=== PATIENT | male | born 1965 | race Caucasian/White ===

== ENCOUNTER 2018-05-29 21:30 | Inpatient (IN) | payer OTHER ==
[2018-05-29 22:07] LABS: ADD MAN DIFF? NO
[2018-05-29 22:10] LABS: WHITE BLOOD COUNT 22.2 10^3/ul (4.8-10.8)
[2018-05-29 22:10] LABS: BASOPHIL # 0.1 10^3/ul (0.0-0.1); BASOPHILS % 0.4 % (0.0-2.0); EOSINOPHILS # 0.1 10^3/ul (0.0-0.5); EOSINOPHILS % 0.4 % (0.0-7.0); HEMATOCRIT 43.4 % (42.0-52.0); HEMOGLOBIN 14.1 g/dl (14.0-18.0); LYMPHOCYTES # 1.2 10^3/ul (0.8-2.9); LYMPHOCYTES % 5.6 % (15.0-51.0); MEAN CORPUSCULAR HEMOGLOBIN 27.1 pg (29.0-33.0); MEAN CORPUSCULAR HGB CONC 32.5 g/dl (32.0-37.0); MEAN CORPUSCULAR VOLUME 83.5 fl (82.0-101.0); MEAN PLATELET VOLUME 10.3 fl (7.4-10.4); MONOCYTE # 1.4 10^3/ul (0.3-0.9); MONOCYTES % 6.1 % (0.0-11.0); NEUTROPHIL # 19.1 10^3/ul (1.6-7.5); NEUTROPHILS % 86.1 % (39.0-77.0); PLATELET COUNT 224 10^3/UL (140-415); POSITIVE DIFF @See below; RED CELL DISTRIBUTION WIDTH 13.9 % (11.5-14.5)
[2018-05-29] MEDS: IBUPROFEN 600 MG TAB PO (22:23)
[2018-05-29 22:28] LABS: ALANINE AMINOTRANSFERASE 16 IU/L (13-69); ALBUMIN 3.7 g/dl (3.3-4.9); ALKALINE PHOSPHATASE 74 IU/L (42-121); ANION GAP 12 (5-13); ASPARTATE AMINO TRANSFERASE 25 IU/L (15-46); BILIRUBIN,INDIRECT 0.8 mg/dl (0-1.1); BILIRUBIN,TOTAL 0.8 mg/dl (0.2-1.3); BLOOD UREA NITROGEN 21 mg/dl (7-20); CALCIUM 9.1 mg/dl (8.4-10.2); CARBON DIOXIDE 24 mmol/L (21-31); CHLORIDE 94 mmol/L (97-110); CREATININE 1.33 mg/dl (0.61-1.24); Estimated GFR 56 mL/min (>60); GLUCOSE 298 mg/dl (70-220); LIPASE 96 U/L (23-300); POTASSIUM 4.5 mmol/L (3.5-5.1); SODIUM 130 mmol/L (135-144); TOTAL PROTEIN 7.4 g/dl (6.1-8.1)
[2018-05-29 22:28] LABS: LACTIC ACID 1.6 mmol/L (0.5-2.0)
[2018-05-29 22:31] LABS: PARTIAL THROMBOPLASTIN TIME 21.8 Sec (23.0-35.0); PROTIME 14.3 Sec (11.9-14.9); PT RATIO 1.1
[2018-05-29 22:38] LABS: TROPONIN-I < 0.012 ng/ml (0.000-0.120)
[2018-05-29] MEDS: SODIUM CHLORIDE 0.9% 1L BAG IV* (23:04)
[2018-05-29] MEDS: PIPER-TAZO 3.375 GM IV (PMX) 100 ML IVPB (23:04)
[2018-05-30 00:48] LABS: ADD UMIC YES; UR ASCORBIC ACID NEGATIVE (NEGATIVE); UR BILIRUBIN (Dip) NEGATIVE (NEGATIVE); UR BLOOD (Dip) 1+ mg/dL (NEGATIVE); UR CLARITY SLIGHTLY CLOUDY (CLEAR); UR COLOR YELLOW (YELLOW); UR GLUCOSE (Dip) 3+ mg/dL (NEGATIVE); UR KETONES (Dip) TRACE mg/dL (NEGATIVE); UR LEUKOCYTE ESTERASE (Dip) NEGATIVE Leu/ul (NEGATIVE); UR MUCUS FEW /HPF (NONE SEEN); UR NITRITE (Dip) NEGATIVE (NEGATIVE); UR RBC 0 /HPF (0-5); UR SPECIFIC GRAVITY (Dip) 1.017 (1.003-1.030); UR TOTAL PROTEIN (Dip) 3+ mg/dl (NEGATIVE); UR UROBILINOGEN (Dip) NEGATIVE (NEGATIVE); UR WBC 1 /HPF (0-5)
[2018-05-30] MEDS: SOD CHLORIDE 0.9% 100 ML (00:52)
[2018-05-30] MEDS: IOHEXOL 300MG/ML 150 ML BTL (00:52)
[2018-05-30] MEDS ORDERED: ACETAMINOPHEN 325 MG TAB PO (02:30)
[2018-05-30] MEDS ORDERED: NACL 0.9% 3 ML SYG IV (02:30)
[2018-05-30] MEDS ORDERED: DOCUSATE SODIUM 100 MG CAP PO (02:30)
[2018-05-30] MEDS ORDERED: BISACODYL (EC) 5 MG TAB PO (02:30)
[2018-05-30] MEDS ORDERED: ONDANSETRON 4 MG INJ IV ×2 (02:30→04:30)
[2018-05-30 02:31] LABS: LACTIC ACID 1.2 mmol/L (0.5-2.0)
[2018-05-30] MEDS: SOD CHLORIDE 0.9% 1,000 ML IV (02:57)
[2018-05-30] MEDS ORDERED: VANCOMYCIN IV PER PHARMACY XX ×2 (03:30→04:00)
[2018-05-30] MEDS: CLINDAMYCIN 900 MG/D5W (PMX) 50 ML IVPB ×2 (03:44→18:21)
[2018-05-30] MEDS ORDERED: POLYMYXIN B 500000 UNIT INJ (03:54)
[2018-05-30] MEDS ORDERED: CLINDAMYCIN 900 MG/D5W (PMX) 50 ML IVPB (04:00)
[2018-05-30] MEDS: INSULIN ASPART [NOVOLOG] 3 ML PEN SC ×7 (04:04→20:38)
[2018-05-30] MEDS ORDERED: PROPOFOL 20 ML (04:14)
[2018-05-30] MEDS ORDERED: FENTAnyl 50 MCG/ML VIAL (04:14)
[2018-05-30] MEDS ORDERED: SUCCINYLCHOLINE CHLORIDE 100 MG/5 ML SYG IV (04:14)
[2018-05-30] MEDS ORDERED: METOCLOPRAMIDE 10 MG INJ (04:30)
[2018-05-30] MEDS ORDERED: HYDROmorphONE 1 MG/5 ML IV SYRINGE IV ×3 (04:30)
[2018-05-30] MEDS ORDERED: hydrALAzine 20 MG INJ IV (04:30)
[2018-05-30] MEDS ORDERED: DIPHENHYDRAMINE 50 MG INJ IV (04:30)
[2018-05-30] MEDS ORDERED: LABETALOL HCL 20MG INJ IV (04:30)
[2018-05-30] MEDS ORDERED: MEPERIDINE 25 MG INJ IV (04:30)
[2018-05-30] MEDS ORDERED: ONDANSETRON 4 MG INJ (04:30)
[2018-05-30] MEDS ORDERED: FENTAnyl 50 MCG/ML VIAL IV ×2 (04:30)
[2018-05-30] MEDS ORDERED: ROCURONIUM 50 MG INJ (04:31)
[2018-05-30] MEDS ORDERED: PHENYLephrine 10 MG INJ (04:36)
[2018-05-30] MEDS ORDERED: ALBUTEROL 0.083% (NEB) 2.5 MG/3 ML AMP (05:17)
[2018-05-30] MEDS: FENTAnyl 50 MCG/ML VIAL IV (06:01)
[2018-05-30] MEDS: PIPER-TAZO 3.375 GM IV (PMX) 100 ML IVPB ×3 (06:06→20:35)
[2018-05-30] MEDS: ALBUTEROL 0.083% (NEB) 2.5 MG/3 ML AMP HHN (06:30)
[2018-05-30] MEDS: IPRATROPIUM (NEB) 0.5 MG/2.5 ML AMP HHN (06:30)
[2018-05-30] MEDS ORDERED: CLINDAMYCIN 900 MG/50 ML D5W IVPB IVPB (07:00)
[2018-05-30] MEDS ORDERED: GLUCAGON 1 MG INJ IM (07:30)
[2018-05-30] MEDS ORDERED: DEXTROSE 50% 50 ML SYRINGE IV ×2 (07:30)
[2018-05-30] MEDS ORDERED: GLUCOSE GEL 15 GRAM TUBE PO ×2 (07:30)
[2018-05-30] MEDS ORDERED: GLUCOSE GEL 15 GRAM TUBE BUCCAL (07:30)
[2018-05-30 10:49] LABS: ABNORMAL IP MESSAGE 1; HEMATOCRIT 38.8 % (42.0-52.0); HEMOGLOBIN 12.4 g/dl (14.0-18.0); MEAN CORPUSCULAR HEMOGLOBIN 27.2 pg (29.0-33.0); MEAN CORPUSCULAR VOLUME 85.1 fl (82.0-101.0); MEAN PLATELET VOLUME 9.7 fl (7.4-10.4); PLATELET COUNT 253 10^3/UL (140-415); POSITIVE DIFF @See below; RED BLOOD COUNT 4.56 10^6/ul (4.70-6.10); RED CELL DISTRIBUTION WIDTH 14.4 % (11.5-14.5)
[2018-05-30 10:49] LABS: WHITE BLOOD COUNT 27.3 10^3/ul (4.8-10.8)
[2018-05-30 10:51] LABS: ADD MAN DIFF? YES
[2018-05-30] MEDS: ENOXAPARIN 40 MG/0.4 ML SYG SC (10:56)
[2018-05-30 10:59] LABS: HEMOGLOBIN A1C 11.3 % (0-5.9)
[2018-05-30 11:07] LABS: ALANINE AMINOTRANSFERASE 16 IU/L (13-69); ALBUMIN 3.2 g/dl (3.3-4.9); ALBUMIN/GLOBULIN RATIO 1.03; ALKALINE PHOSPHATASE 78 IU/L (42-121); ANION GAP 7 (5-13); ASPARTATE AMINO TRANSFERASE 25 IU/L (15-46); BILIRUBIN,INDIRECT 0.7 mg/dl (0-1.1); BILIRUBIN,TOTAL 0.7 mg/dl (0.2-1.3); BLOOD UREA NITROGEN 24 mg/dl (7-20); CALCIUM 8.2 mg/dl (8.4-10.2); CARBON DIOXIDE 26 mmol/L (21-31); CHLORIDE 99 mmol/L (97-110); CHOL/HDL RATIO 6.6 RATIO; CHOLESTEROL 139 mg/dl (100-200); CREATININE 1.58 mg/dl (0.61-1.24); Estimated GFR 46 mL/min (>60); GLUCOSE 334 mg/dl (70-220); HDL CHOLESTEROL 21 mg/dl (28-71); LDL CHOLESTEROL,CALCULATED 63 mg/dl; MAGNESIUM 1.7 mg/dl (1.7-2.5); POTASSIUM 4.8 mmol/L (3.5-5.1); SODIUM 132 mmol/L (135-144); TOTAL PROTEIN 6.3 g/dl (6.1-8.1); TRIGLYCERIDES 273 mg/dl (0-149)
[2018-05-30 11:43] LABS: ANISOCYTOSIS 2+ (0-0); BAND NEUTROPHILS #M 2.4 10^3/ul (0.0-0.6); BAND NEUTROPHILS % (M) 9 % (0-4); LYMPHOCYTES % (M) 4 % (15-51); MICROCYTOSIS 1+ (0-0); MONOCYTE #M 1.6 10^3/ul (0.3-0.9); MONOCYTES % (M) 6 % (0-11); PLATELET ESTIMATE NORMAL; POLYCHROMASIA 1+ (0-0); SEG NEUT #M 22.8 10^3/ul (1.6-7.5); SEGMENTED NEUTROPHILS (M) % 81 % (39-77); SMUDGE%M 1 % (0-0)
[2018-05-30] MEDS: INSULIN GLARGINE [LANTus] (100 UNITS/ML) SYG SC (12:47)
[2018-05-30] MEDS: VANCOMYCIN HCL 2 GM in SOD CHLORIDE 0.9% 500 ML IVPB (14:05)
[2018-05-30] MEDS: DAKINS 0.0125%(1/40) 473 ML SOLUTION TP (15:41)
[2018-05-30] MEDS: morphine 2 MG INJ IV (15:41)
[2018-05-30] MEDS: CEPASTAT LOZENGE MT (20:44)
[2018-05-31] MEDS: ACCU-CHEK XX (02:00)
[2018-05-31] MEDS: PIPER-TAZO 3.375 GM IV (PMX) 100 ML IVPB ×4 (02:36→22:32)
[2018-05-31] MEDS: VANCOMYCIN 1 GM 250 ML IVPB ×2 (02:54→14:14)
[2018-05-31] MEDS: morphine 2 MG INJ IV ×2 (04:37→12:05)
[2018-05-31] MEDS: CLINDAMYCIN 900 MG/D5W (PMX) 50 ML IVPB ×3 (05:18→21:25)
[2018-05-31] MEDS: ENOXAPARIN 40 MG/0.4 ML SYG SC (06:14)
[2018-05-31] MEDS: SOD CHLORIDE 0.9% 500 ML IV (06:15)
[2018-05-31] MEDS: INSULIN ASPART [NOVOLOG] 3 ML PEN SC ×7 (08:52→21:24)
[2018-05-31] MEDS: INSULIN GLARGINE [LANTus] (100 UNITS/ML) SYG SC (08:53)
[2018-05-31 11:47] LABS: ADD MAN DIFF? NO
[2018-05-31 11:54] LABS: BASOPHIL # 0.1 10^3/ul (0.0-0.1); BASOPHILS % 0.6 % (0.0-2.0); EOSINOPHILS # 0.5 10^3/ul (0.0-0.5); EOSINOPHILS % 3.7 % (0.0-7.0); HEMATOCRIT 38.5 % (42.0-52.0); LYMPHOCYTES # 1.6 10^3/ul (0.8-2.9); LYMPHOCYTES % 11.1 % (15.0-51.0); MEAN CORPUSCULAR HEMOGLOBIN 27.1 pg (29.0-33.0); MEAN CORPUSCULAR HGB CONC 31.2 g/dl (32.0-37.0); MEAN CORPUSCULAR VOLUME 87.1 fl (82.0-101.0); MEAN PLATELET VOLUME 9.2 fl (7.4-10.4); MONOCYTE # 0.9 10^3/ul (0.3-0.9); MONOCYTES % 6.3 % (0.0-11.0); NEUTROPHILS % 75.8 % (39.0-77.0); PLATELET COUNT 265 10^3/UL (140-415); RED BLOOD COUNT 4.42 10^6/ul (4.70-6.10); RED CELL DISTRIBUTION WIDTH 14.5 % (11.5-14.5)
[2018-05-31 11:54] LABS: WHITE BLOOD COUNT 14.5 10^3/ul (4.8-10.8)
[2018-05-31 12:33] LABS: ALANINE AMINOTRANSFERASE 28 IU/L (13-69); ALBUMIN 2.7 g/dl (3.3-4.9); ALBUMIN/GLOBULIN RATIO 0.96; ALKALINE PHOSPHATASE 58 IU/L (42-121); ANION GAP 9 (5-13); ASPARTATE AMINO TRANSFERASE 25 IU/L (15-46); BILIRUBIN,INDIRECT 0.4 mg/dl (0-1.1); BILIRUBIN,TOTAL 0.4 mg/dl (0.2-1.3); BLOOD UREA NITROGEN 19 mg/dl (7-20); CALCIUM 7.4 mg/dl (8.4-10.2); CARBON DIOXIDE 24 mmol/L (21-31); CHLORIDE 103 mmol/L (97-110); CREATININE 1.28 mg/dl (0.61-1.24); Estimated GFR 59 mL/min (>60); GLUCOSE 216 mg/dl (70-220); POTASSIUM 4.1 mmol/L (3.5-5.1); SODIUM 136 mmol/L (135-144); TOTAL PROTEIN 5.5 g/dl (6.1-8.1)
[2018-06-01] MEDS: morphine 2 MG INJ IV ×4 (00:47→21:53)
[2018-06-01] MEDS: ACCU-CHEK XX ×3 (02:00)
[2018-06-01 02:08] LABS: VANCOMYCIN,TROUGH 9.8 ug/ml (10.0-20.0)
[2018-06-01] MEDS: VANCOMYCIN 1 GM 250 ML IVPB (02:45)
[2018-06-01] MEDS: CLINDAMYCIN 900 MG/D5W (PMX) 50 ML IVPB ×2 (05:32→12:52)
[2018-06-01] MEDS: PIPER-TAZO 3.375 GM IV (PMX) 100 ML IVPB ×4 (06:37→23:52)
[2018-06-01] MEDS: ENOXAPARIN 40 MG/0.4 ML SYG SC (06:48)
[2018-06-01] MEDS: INSULIN ASPART [NOVOLOG] 3 ML PEN SC ×7 (08:26→21:30)
[2018-06-01] MEDS: INSULIN GLARGINE [LANTus] (100 UNITS/ML) SYG SC (08:26)
[2018-06-01] MEDS: LEVALBUTEROL (NEB) 1.25 MG/0.5 ML AMP HHN (09:06)
[2018-06-01] MEDS ORDERED: VANCOMYCIN HCL 1.25 GM in SOD CHLORIDE 0.9% 250 ML IVPB (14:00)
[2018-06-01] MEDS ORDERED: VANCOMYCIN HCL 1.5 GM in SOD CHLORIDE 0.9% 250 ML IVPB (14:00)
[2018-06-01] MEDS: LIDOCAINE 2% JELLY 5 ML TOP ×2 (15:00→21:00)
[2018-06-01 15:01] LABS: ADD MAN DIFF? NO
[2018-06-01 15:02] LABS: BASOPHIL # 0.1 10^3/ul (0.0-0.1); BASOPHILS % 0.8 % (0.0-2.0); EOSINOPHILS # 0.6 10^3/ul (0.0-0.5); EOSINOPHILS % 5.4 % (0.0-7.0); HEMATOCRIT 40.7 % (42.0-52.0); HEMOGLOBIN 12.7 g/dl (14.0-18.0); LYMPHOCYTES # 1.6 10^3/ul (0.8-2.9); LYMPHOCYTES % 14.2 % (15.0-51.0); MEAN CORPUSCULAR HEMOGLOBIN 27.1 pg (29.0-33.0); MEAN CORPUSCULAR HGB CONC 31.2 g/dl (32.0-37.0); MEAN PLATELET VOLUME 9.2 fl (7.4-10.4); MONOCYTE # 0.7 10^3/ul (0.3-0.9); NEUTROPHIL # 7.9 10^3/ul (1.6-7.5); NEUTROPHILS % 71.3 % (39.0-77.0); PLATELET COUNT 303 10^3/UL (140-415); RED BLOOD COUNT 4.68 10^6/ul (4.70-6.10); RED CELL DISTRIBUTION WIDTH 14.3 % (11.5-14.5)
[2018-06-01 15:02] LABS: WHITE BLOOD COUNT 11.1 10^3/ul (4.8-10.8)
[2018-06-01 16:32] LABS: CREATININE, RANDOM URINE 116 mg/dL (20-320); MICROALBUMIN/CREATININE RATIO 1086 (<30)
[2018-06-02] MEDS: HYDROCODONE/APAP (5/325) TAB PO ×2 (00:21→23:47)
[2018-06-02] MEDS: LEVALBUTEROL (NEB) 1.25 MG/0.5 ML AMP HHN ×2 (00:31→23:17)
[2018-06-02] MEDS: ACCU-CHEK XX (02:00)
[2018-06-02] MEDS: PIPER-TAZO 3.375 GM IV (PMX) 100 ML IVPB ×2 (06:24→11:54)
[2018-06-02] MEDS: ENOXAPARIN 40 MG/0.4 ML SYG SC (06:43)
[2018-06-02] MEDS: INSULIN ASPART [NOVOLOG] 3 ML PEN SC ×7 (08:43→21:00)
[2018-06-02] MEDS: INSULIN GLARGINE [LANTus] (100 UNITS/ML) SYG SC (08:45)
[2018-06-02] MEDS: LIDOCAINE 2% JELLY 5 ML TOP ×2 (08:45→18:11)
[2018-06-02] MEDS: SODIUM HYPOCHLORITE (1/40) 1 LITER BTL TOP (11:45)
[2018-06-02] MEDS: morphine 2 MG INJ IV ×2 (11:46→18:01)
[2018-06-02] MEDS: FUROSEMIDE 20 MG INJ IV (15:06)
[2018-06-02] MEDS ORDERED: CLINDAMYCIN 150 MG CAP PO (16:30)
[2018-06-02] MEDS: CIPROFLOXACIN 500 MG TAB PO (18:09)
[2018-06-02] MEDS: NYSTATIN SUSP 5 ML CUP PO ×2 (18:10→22:12)
[2018-06-02] MEDS ORDERED: metroNIDAZOLE 500 MG TAB PO (22:00)
[2018-06-02] MEDS: ACETYLCYSTEINE 20% 4 ML VIAL NEB (23:18)
[2018-06-03] MEDS: CIPROFLOXACIN 500 MG TAB PO ×2 (07:18→17:49)
[2018-06-03] MEDS: ENOXAPARIN 40 MG/0.4 ML SYG SC (07:37)
[2018-06-03] MEDS: INSULIN ASPART [NOVOLOG] 3 ML PEN SC ×7 (08:37→20:28)
[2018-06-03] MEDS: INSULIN GLARGINE [LANTus] (100 UNITS/ML) SYG SC (08:38)
[2018-06-03] MEDS: LIDOCAINE 2% JELLY 5 ML TOP ×2 (08:39→20:24)
[2018-06-03] MEDS: NYSTATIN SUSP 5 ML CUP PO ×4 (08:39→20:24)
[2018-06-03] MEDS: FUROSEMIDE 20 MG INJ IV (10:58)
[2018-06-03 11:13] LABS: ADD MAN DIFF? NO
[2018-06-03 11:15] LABS: BASOPHIL # 0.1 10^3/ul (0.0-0.1); BASOPHILS % 0.9 % (0.0-2.0); EOSINOPHILS # 0.5 10^3/ul (0.0-0.5); EOSINOPHILS % 3.9 % (0.0-7.0); HEMATOCRIT 40.7 % (42.0-52.0); HEMOGLOBIN 13.1 g/dl (14.0-18.0); LYMPHOCYTES # 1.5 10^3/ul (0.8-2.9); LYMPHOCYTES % 12.7 % (15.0-51.0); MEAN CORPUSCULAR HEMOGLOBIN 27.2 pg (29.0-33.0); MEAN CORPUSCULAR HGB CONC 32.2 g/dl (32.0-37.0); MEAN CORPUSCULAR VOLUME 84.6 fl (82.0-101.0); MEAN PLATELET VOLUME 8.8 fl (7.4-10.4); MONOCYTE # 0.6 10^3/ul (0.3-0.9); MONOCYTES % 4.9 % (0.0-11.0); NEUTROPHIL # 8.8 10^3/ul (1.6-7.5); NEUTROPHILS % 73.1 % (39.0-77.0); PLATELET COUNT 314 10^3/UL (140-415); RED BLOOD COUNT 4.81 10^6/ul (4.70-6.10)
[2018-06-03 11:39] LABS: ANION GAP 9 (5-13); BLOOD UREA NITROGEN 19 mg/dl (7-20); CARBON DIOXIDE 29 mmol/L (21-31); CHLORIDE 100 mmol/L (97-110); CREATININE 1.02 mg/dl (0.61-1.24); Estimated GFR > 60 mL/min (>60); GLUCOSE 199 mg/dl (70-220); POTASSIUM 4.2 mmol/L (3.5-5.1); SODIUM 138 mmol/L (135-144)
[2018-06-03] MEDS: HYDROCODONE/APAP (10/325) TAB NGT (13:07)
[2018-06-03] MEDS ORDERED: HYDROCODONE/APAP (5/325) TAB PO (14:30)
[2018-06-03] MEDS: morphine 2 MG INJ IV (20:20)
[2018-06-03] MEDS: metroNIDAZOLE 500 MG TAB PO (22:19)
[2018-06-03] MEDS: LEVALBUTEROL (NEB) 1.25 MG/0.5 ML AMP HHN (23:02)
[2018-06-04] MEDS: metroNIDAZOLE 500 MG TAB PO ×3 (06:30→21:55)
[2018-06-04] MEDS: CIPROFLOXACIN 500 MG TAB PO ×2 (06:31→18:32)
[2018-06-04] MEDS: ENOXAPARIN 40 MG/0.4 ML SYG SC (06:33)
[2018-06-04] MEDS: NYSTATIN SUSP 5 ML CUP PO ×4 (08:17→21:00)
[2018-06-04] MEDS: LIDOCAINE 2% JELLY 5 ML TOP (08:17)
[2018-06-04] MEDS: INSULIN ASPART [NOVOLOG] 3 ML PEN SC ×7 (08:21→21:00)
[2018-06-04] MEDS: INSULIN GLARGINE [LANTus] (100 UNITS/ML) SYG SC (08:22)
[2018-06-04] MEDS: morphine 2 MG INJ IV ×3 (08:52→20:41)
[2018-06-04] MEDS: HYDROCORTISONE 1% 28 GM CR TOP ×2 (13:30→21:10)
[2018-06-04] MEDS: LEVALBUTEROL (NEB) 1.25 MG/0.5 ML AMP HHN (23:03)
[2018-06-04] MEDS: AMLODIPINE 10 MG TAB PO (23:37)
[2018-06-05] MEDS: morphine 2 MG INJ IV ×2 (04:50→22:49)
[2018-06-05] MEDS: LIDOCAINE 2% JELLY 5 ML TOP ×3 (04:58→20:12)
[2018-06-05] MEDS: metroNIDAZOLE 500 MG TAB PO ×3 (05:55→21:36)
[2018-06-05] MEDS: CIPROFLOXACIN 500 MG TAB PO ×2 (05:55→17:55)
[2018-06-05] MEDS: ENOXAPARIN 40 MG/0.4 ML SYG SC (06:50)
[2018-06-05] MEDS: NYSTATIN SUSP 5 ML CUP PO ×4 (08:43→20:12)
[2018-06-05] MEDS: INSULIN ASPART [NOVOLOG] 3 ML PEN SC ×7 (08:47→20:14)
[2018-06-05] MEDS: INSULIN GLARGINE [LANTus] (100 UNITS/ML) SYG SC (08:48)
[2018-06-05] MEDS: HYDROCORTISONE 1% 28 GM CR TOP ×2 (12:55→20:12)
[2018-06-05 14:00] LABS: ADD MAN DIFF? NO
[2018-06-05 14:03] LABS: BASOPHIL # 0.1 10^3/ul (0.0-0.1); BASOPHILS % 0.5 % (0.0-2.0); EOSINOPHILS # 0.4 10^3/ul (0.0-0.5); EOSINOPHILS % 3.8 % (0.0-7.0); HEMATOCRIT 42.9 % (42.0-52.0); HEMOGLOBIN 13.8 g/dl (14.0-18.0); LYMPHOCYTES % 18.5 % (15.0-51.0); MEAN CORPUSCULAR HEMOGLOBIN 27.1 pg (29.0-33.0); MEAN CORPUSCULAR HGB CONC 32.2 g/dl (32.0-37.0); MEAN CORPUSCULAR VOLUME 84.3 fl (82.0-101.0); MEAN PLATELET VOLUME 8.8 fl (7.4-10.4); MONOCYTE # 0.5 10^3/ul (0.3-0.9); MONOCYTES % 4.2 % (0.0-11.0); NEUTROPHIL # 7.5 10^3/ul (1.6-7.5); NEUTROPHILS % 68.5 % (39.0-77.0); PLATELET COUNT 358 10^3/UL (140-415); RED BLOOD COUNT 5.09 10^6/ul (4.70-6.10); RED CELL DISTRIBUTION WIDTH 14.4 % (11.5-14.5)
[2018-06-05] MEDS: LEVALBUTEROL (NEB) 1.25 MG/0.5 ML AMP HHN (23:32)
[2018-06-06] MEDS: metroNIDAZOLE 500 MG TAB PO ×2 (06:31→13:37)
[2018-06-06] MEDS: CIPROFLOXACIN 500 MG TAB PO (06:32)
[2018-06-06] MEDS: ENOXAPARIN 40 MG/0.4 ML SYG SC (06:37)
[2018-06-06] MEDS: HYDROCORTISONE 1% 28 GM CR TOP (08:33)
[2018-06-06] MEDS: NYSTATIN SUSP 5 ML CUP PO ×2 (08:33→13:37)
[2018-06-06] MEDS: INSULIN GLARGINE [LANTus] (100 UNITS/ML) SYG SC (08:36)
[2018-06-06] MEDS: INSULIN ASPART [NOVOLOG] 3 ML PEN SC ×4 (08:37→13:43)
[2018-06-06] MEDS: morphine 2 MG INJ IV (12:05)
[2018-06-06] MEDS: LIDOCAINE 2% JELLY 5 ML TOP (12:08)
== END 2018-06-06 14:55 | disposition home health service (06) | DRG 853 ==
LOC: E/R 21:30 → 2NE 05-30 01:38 → MS1 05-30 07:30
PROC: 0JBB0ZZ Excision of Perineum Subcutaneous Tissue and Fascia, Open Approach (ICD-10-PCS; principal; 2018-05-30 03:45)
PROC: 0D9QXZZ Drainage of Anus, External Approach (ICD-10-PCS; 2018-05-30 03:45)
PROC: 0J9B3ZZ Drainage of Perineum Subcutaneous Tissue and Fascia, Percutaneous Approach (ICD-10-PCS; 2018-05-30 03:45)
PROC: 0V95XZZ Drainage of Scrotum, External Approach (ICD-10-PCS; 2018-05-30 03:45)
DX: A41.9 Sepsis, unspecified organism (principal); A48.0 Gas gangrene; M72.6 Necrotizing fasciitis; E11.52 Type 2 diabetes mellitus with diabetic peripheral angiopathy with gangrene; N17.9 Acute kidney failure, unspecified; E87.1 Hypo-osmolality and hyponatremia; L02.215 Cutaneous abscess of perineum; K61.0 Anal abscess; K61.1 Rectal abscess; B37.0 Candidal stomatitis; R65.20 Severe sepsis without septic shock; E66.01 Morbid (severe) obesity due to excess calories; E11.65 Type 2 diabetes mellitus with hyperglycemia; E11.21 Type 2 diabetes mellitus with diabetic nephropathy; E78.5 Hyperlipidemia, unspecified; I10 Essential (primary) hypertension; I89.0 Lymphedema, not elsewhere classified; N49.3 Fournier gangrene; N49.2 Inflammatory disorders of scrotum; L27.0 Generalized skin eruption due to drugs and medicaments taken internally; T36.0X5A Adverse effect of penicillins, initial encounter; R06.02 Shortness of breath; R06.2 Wheezing; R60.1 Generalized edema; Q63.1 Lobulated, fused and horseshoe kidney; Z68.38 Body mass index [BMI] 38.0-38.9, adult; Z79.84 Long term (current) use of oral hypoglycemic drugs
CPT/HCPCS: 36415; 71045; 74177; 80048; 80053; 80061; 80202; 81001; 82043; 82962; 83036; 83605; 83690; 83735; 84443; 84484; 85025; 85610; 85730; 87040-91; 87070; 87075; 87086; 87102; 88304; 93005; 93971; 94640; 94664; 96374; 99291-25